=== PATIENT | female | born 1990 | race Caucasian/White ===

== ENCOUNTER 2022-10-28 15:00 | Emergency (ER) | payer BC, SELFPAY ==
[2022-10-28 15:13] VITALS: BP 104/54; PULSE 110; RESP 20; TEMP 37; O2SAT 99
--- NOTE | 2022-10-28 15:33 | ED.GENADUL_ITS ---
Discharge Plan Disposition Patient Disposition: Home Condition: Stable Discharge Details Clinical Impression: Abdominal pain, Primary Care Provider: Josué Frey ED Provider: Bebo Goodman Home Meds and New Rx's Prescriptions: No Action norgestimate-ethinyl estradiol [Ortho Tri-Cyclen (28)] 1 EACH tablet 1 tab-cap PO DAILY Discharge Instructions Instructions: (ED), Abdominal Pain (ED) HPI General Date/Time Provider Initiated Documentation: 10/28/22 15:19 . HPI Narrative: 32 year old female presents to the ED with c/o b/l lower abd pain pain since yesterday. Has been a relatively constant, crampy feeling. Initially felt she was constipated, but sx's persisted after BM. She says that she had miscarriage about 1 1/2 weeks ago, vaginal bleeding stopped about week ago. Her LMP was prior to (delivered 01/29, no period since then), and says had positive test a few weeks ago. She denies any urinary sx's, no n/v, no fever/chills. Currently feeling a little better. Pain mild, to moderate. No aggravating or alleviating factors, no other associated sx's. Related Data Home Medications Medication Instructions Recorded Confirmed norgestimate-ethinyl estradiol 1 tab-cap PO DAILY 01/18/15 10/28/22 0.18 mg/0.215mg/0.25mg-35 mcg(28)tablet (Ortho Tri-Cyclen (28)) Allergies Allergy/AdvReac Type Severity Reaction Status Date / Time No Known Allergies Allergy Unverified 10/28/22 15:17 General Stated Complaint: Abd Prob MEDINA: 3 Review of Systems Narrative: CONST: no fever or chills HEENT: no sore throat SKIN: no rashes PULM: no sob, no cough CARD: no cp, no palpitations ABD: +abd pain EXTR: no swelling NEURO: No focal weakness PFSH All Active Problems (Updated 10/28/22 @ 19:03 by Bebo Goodman MD) Abdominal pain (Acute) (Acute) Family History Mother No problems noted. Father Personal history of malignant neoplasm PROSTATE Brother No problems noted. Social History Smoking/Tobacco Use Status: Never Smoking risk assessment performed?: Yes Do you feel safe at home: Yes Do you feel safe in your relationship?: Yes Exam Narrative Exam Narrative: Const: well appearing, no acute distress HEENT: normocephalic, atraumatic; MMM Lungs: CTA, no wheezing or rales Heart: RRR Abd: soft, RLQ and suprapubic tenderness, no rebound or guarding Ext: well perfused Neuro: non-focal Skin: no rashes Course 32 yo female , recent miscarriage per pt in past 1 1/2 weeks with lower abd pain. No vaginal bleeding. Discussed posibility of RPOC, will check test, and may need pelvic US to r/o, also with some RLQ tenderness, may need CT a/p to eval appy, labs. She is declining any meds at this time. Reevaluation(s) Initial Evaluation: POC preg +, added quant, pelvic US to orders. Reevaluation: 1629 - Spoke to covering provider at [facility], was seen on September 27, had beta HCG 452, and then Sep 30 was down to 382, so presumed had complete miscarriage. Reevaluation #2: beta HCG 3501 today. Bedside transabd US could not visualize definitive IUP, but difficult to see transabdominal at this stage. Pt and dumbfounded about results, unclear how she could be , and given dates for her prior quant would expect. checking with lab to ensure no error. They will re-run. 184 - repeat hcg 3469. Additional Reevaluation(s): Pt with normal labs otherwise, unexpected positive HCG, verified on repeat. Exam with mild tenderness, but overall pretty benign and does not appear to be in a lot of pain. No vaginal bleeding. Discussed that pt needs US next to better eval, r/o possible ectopic for completeness.. She wants to call her resident care provider office tomorrow. Order for out-pt US given to use, and will need repeat labs in 2-3 days. Vital Signs Vital signs: Vital Signs Temperature 37.0 C 10/28/22 15:13 Pulse 110 H 10/28/22 15:13 Respiratory Rate 20 10/28/22 15:13 Blood Pressure 104/54 L 10/28/22 15:13 Pulse Oximetry 99 10/28/22 15:13 Temperature 37.0 C 10/28/22 15:13 Temperature Source Oral 10/28/22 15:13 Pulse 110 H 10/28/22 15:13 Respiratory Rate 20 10/28/22 15:13 Blood Pressure 104/54 L 10/28/22 15:13 Blood Pressure Position Sitting 10/28/22 15:13 Pulse Oximetry 99 10/28/22 15:13 Oxygen Delivery Method Room Air 10/28/22 15:13 Oxygen Flow Rate 0 10/28/22 15:13
[2022-10-28] MEDS: Normal Saline 1,000 ML 1000 ML IV (15:51)
[2022-10-28 16:04] LABS: Bilirubin Negative (Negative); Blood Large (Negative); Clarity Clear (Clear); Glucose Negative (Negative); Ketones Negative (Negative); Leukocyte Esterase Negative (Negative); Nitrite Negative (Negative); Specific Gravity >= 1.030 (1.005-1.025); Urobilinogen 0.2 mg/dL (Up to 0.2); pH 5.5 (5-8)
[2022-10-28 16:18] LABS: Bacteria Rare HPF (Negative); Crystals Negative HPF (Negative); Epithelial Cells Few HPF (Negative); WBC Negative HPF (0-5)
[2022-10-28 16:19] LABS: C & S Indicated? No; Casts Negative LPF (Negative); Mucus Trace (Negative)
[2022-10-28 16:33] LABS: HCG Quant, Pregnancy 3501 mIU/mL (1-3)
[2022-10-28 18:40] LABS: Abs Immature Grans 0.02 10^3/uL (0.0-0.06); Absolute Basophil Count 0.06 10^3/uL (0.0-0.2); Absolute Eosinophil Count 0.13 10^3/uL (0.0-0.7); Absolute Lymphocyte Count 1.39 10^3/uL (1.2-3.4); Absolute Monocyte Count 0.34 10^3/uL (0.1-0.8); Absolute Neutrophil Count 4.36 10^3/uL (1.2-6.7); Eosinophils % 2.1; HCT 39.7 % (36.0-46.0); HGB 13.6 g/dL (11.2-15.7); Immature Grans % 0.3; Lymphocytes % 22.1; MCH 30.1 pg (27.0-33.0); MCHC 34.3 % (32.0-36.0); MCV 88 fL (80-95); MPV 9.4 fL (8.0-11.0); Monocytes % 5.4; Neutrophils % 69.1; Platelet Count 275 10^3/uL (130-400); RBC 4.52 10^6/uL (3.93-5.22); RDW 12.8 % (11.7-14.6); RDW-SD 40.6 fL
[2022-10-28 18:52] LABS: ALT 36 U/L (14-59); AST 23 U/L (15-37); Albumin 3.6 g/dL (3.4-5.0); Alkaline Phosphatase 91 U/L (46-116); Anion Gap 9.6 mmol/L (3-11); BUN 13 mg/dL (7-18); Bilirubin, Total 0.5 mg/dL (0.2-1.0); CO2 26.4 mmol/L (21.0-32.0); CREATININE 0.7 mg/dL (0.55-1.02); Calcium 8.9 mg/dL (8.5-10.1); Chloride 103 mmol/L (98-107); Estimated GFR 116.31 (mL/min/1.73m2); Glucose 107 mg/dL (74-106); Lipase 49 U/L (16-77); Potassium 3.5 mmol/L (3.5-5.1); Sodium 139 mmol/L (136-145); Total Protein 7.7 g/dL (6.4-8.2)
--- OUTSIDE RECORDS SUMMARY | 2022-10-28 19:01 | XMS_ITS | Continuity of Care Document ---
Author Name Unknown Organization [facility] Ambulatory [facility] Address [address] [place] [address] Encounter [facility] NBR [id number] Date(s): 02/11/22 - 02/11/22 [facility]ulatory [facility] [address] [place] [address] us Encounter Diagnosis exam(Discharge Diagnosis) - 02/11/22 Cervical high risk human papillomavirus (HPV) DNA test positive(Discharge Diagnosis) - 02/11/22 Discharge Disposition: Home or Self Care Attending Physician: Kirk Mckeon Allergies, Adverse Reactions, Alerts No Known Medication Allergies Substance Reaction Severity Status Dust Unknown Active Assessment and Plan Future Appointments Functional Status 02/11/22 Other exposure to Infectious Disease Non e Immunizations Given and Recorded Vaccine Date Status Refusal Reason tetanus/diphth/pertuss (Tdap) adult/adol 1 10/11/21 Recorded tetanus/diphth/pertuss (Tdap) adult/adol 2 05/05/19 Recorded 1Result Comment: Unit: Unknown Data Entry Associate: Sanofi Pasteur 2Result Comment: Unit: Unknown Data Entry Associate: Sanofi Pasteur Medications multivitamin adult, oral tablet 1 tab, Oral, Daily, # 30 tab, 0 Refill(s) Start Date: 02/11/22 Status: Ordered norethindrone 0.35 mg oral tablet 0.35 mg = 1 tab, Oral, Daily, # 28 tab, 11 Refill(s), Pharmacy: [facility], 154.94, cm, 12/25/21 13:48:00 EDT, Height/Length Dosing, 75.75, kg, 12/25/21 13:48:00 EDT, Weight Dosing Start Date: 01/14/22 Status: Ordered Problem List Condition Confirmation Course Effective Dates Status H ealth Status Informant Cervical high risk human papillomavirus (HPV) DNA test positive Confirmed Active exam Confirmed Active Rh negative Confirmed Active Procedures Procedure Date Related Diagnosis Body Site Status Structure of wisdom tooth 2007 Completed Vital Signs Most recent to oldest [Reference Range]: 1 Blood Pressure [90-140/60-90 mmHg] 116/7 4mmHg (02/11/22 2:30 PM) Weight 64.0 kg (02/11/22 2:30 PM) Weight Measured (lbs) 141.096 lb (02/11/22 2:30 PM) Social History Social History Type Response Smoking Status Smoking tobacco use: Never tobacco user;Never entered on: 02/11/22 Sex summary Document * Event Display: Summary Document Authored Date: [id number] RENNY ALAS: 1990 Age: 31 Years RENNY ALAS : [birth year] Summary (Date of Report: 01/10/22) G 2 P 2 (2,0,0,2) Gestation: Davies LMP: 03/14/2021 (from pt. history) BEATRICE: 12/19/2021 BEATRICE/EGA Method: Last Menstrual Period EGA: Delivered Gestation info at delivery: Baby A : 40 weeks 6 days 12/11/21: U/S 05/29/2021: 12.6U/S 08/02/2021: 19.4 (Angela Hernandez) RENNY ALAS : [birth year] Antepartum Note Date: 12/13/21 11:04 (39 weeks) By: Kirk Mckeon Reviewed signs of labor and postdate management. RENNY ALAS : [birth year] Problems (Active Problems Only) (SNOMED CT: 703795461, Onset: 03/14/21) Comment: U/S 05/29/2021: 12.6 U/S 08/02/2021: 19.4 (Angela Hernandez on 12/11/21) Rh negative (OMED CT: [id number], Onset: --) RENNY ALAS DOB: [birth year] Risk Factors and Genetic Screening All Results Documented Since 03/14/2021 Risk Factors (Current ) Unique Risk Factors: Other: 1st child patent foramen ovale at [facility] [place] 15 days Ethnic Screening No ethnicities have been recorded. Genetic Disorders Screening No genetic disorders have been recorded. RENNY ALAS DOB: [birth year] Gestational Age (EGA) and BEATRICE * Note: EGA calculated as of 01/10/2022 BEATRICE: 12/19/2021 EGA*: 40 weeks 6 days Type: Authoritative Method Date: 03/14/2021 Method: Last Menstrual Period (03/14/2021) Confirmation: Confirmed Description: Date Definite Comments: -- Entered by: Angela Hernandez on 12/11/2021 Other BEATRICE Calculations for this : No additional BEATRICE calculations have been recorded for this RENNY ALAS DOB: [birth year] Measurements Pre- Weight: 61.69 kg 12/20/21 (40 weeks) Recent Weight Measured: 75.750 kg (+14) 12/25/21 (40 weeks) Height/Length Measured: 154.940 cm 12/25/21 (40 weeks) Body Mass Index Measured: 31.550 kg/m2 12/25/21 (40 weeks) RENNY ALAS : [birth year] Exam and Notes Date CLEOPATRA Cedillo PTL S/S Cervix BP Weight Urine Baby cm Dil Eff(%) Sta mmHg lbs kg Gluc Prot FHR Activity Fet Pres 12/25/21 40w6d -- -- 9.5 100% +1 122/71 *167... -- -- Baby A = 150 -- -- 12/20/21 40w1d 40 *Cram.. -- 60% -- 118/68 *167... Negative Trace Baby A = 144 *Present pe... Vertex 12/13/21 39w1d 39 None -- -- -- 122/74 *167... Negative Negative Baby A = 130 *Present pe... Vertex Next Visit: +1 weeks from 12/13/2021 * Labor Signs & Symptoms 12/20/2021 Cramps * Weight 12/25/2021 167.029(lbs) 75.750(kg) 12/20/2021 167.800(lbs) 76.1(kg) 12/13/2021 167.580(lbs) 76.0(kg) * Activity 12/20/2021 Present per patient 12/13/2021 Present per patient ALASRENNY Franco : [birth year] Physical Exams Physical Exam Mental Status Level of Consciousness: Alert (12/26/21) Orientation Assessment: Oriented x 4 (12/26/21) Affect/Behavior: Appropriate, Calm, Cooperative (12/25/21) HEENT Mouth: Mouth appears normal (12/26/21) Cardiovascular Cardiovascular Symptoms: None (12/26/21) Nail Bed Color: Normal for ethnicity (12/26/21) Capillary Refill: 2 seconds or less (12/26/21) Skin Temperature, Upper Extremities: Warm (12/26/21) Skin Temperature, Lower Extremities: Warm (12/26/21) Jugular Venous Distention: Unable to visualize (12/26/21) Heart Rhythm: Regular (12/26/21) Heart Sounds: S1, S2 (12/26/21) Respiratory Respiratory Symptoms: None (12/26/21) Respirations: Unlabored (12/26/21) Respiratory Pattern: Regular (12/26/21) All Lobes Breath Sounds: Clear (12/25/21) Gastrointestinal GI Symptoms: None (12/26/21) Abdomen Description: Rounded (12/26/21) Abdomen Palpation: Soft (12/26/21) Passing Flatus: Yes (12/26/21) Extremities Edema Edema: Lower Extremities (12/25/21) Integumentary Skin Color General: Usual for ethnicity (12/26/21) Skin Color: Normal for ethnicity (12/25/21) Skin Description: Petrey, Dry (12/25/21) Skin Temperature: Warm (12/26/21) Skin Turgor: Elastic (12/26/21) Skin Moisture General: Dry (12/26/21) Skin Integrity: Intact, no abnormalities (12/25/21) Mucous Membrane Color: Petrey (12/26/21) Mucous Membrane Description: Moist, Intact (12/26/21) RENNY ALAS: [birth year] Blood Types and Anti-D Immune Globulin Blood Type and Screen Mother ABO/Rh: -- Mother Antibody Screen: -- Father of Baby ABO/Rh: -- Father of Baby Antibody Screen: -- Anti-D Immune Globulin Rho(D) Initial Status: -- Rho(D) 28 Week Status: -- Rho(D) Dates Given: -- RENNY ALAS: [birth year] Tests and Lab Results Results ending with 'TR' have been keyed in by the practice or interpreted manually. Result Date: Estimated weeks post onset will display next to actual result date. Test Result Date Ref Range Protein Urine Dipstick Negative 12/13/21 (39 weeks) Glucose Urine Dipstick Negative 12/13/21 (39 weeks) Protein Urine Dipstick Trace 12/20/21 (40 weeks) Glucose Urine Dipstick Negative 12/20/21 (40 weeks) In ICU? (N) No 12/25/21 (40 weeks) Group care resident? (N) No 12/25/21 (40 weeks) Hospitalized due to COVID-19? (N) No 12/25/21 (40 weeks) Symptomatic as defined by CDC? (N) No 12/25/21 (40 weeks) status? (N) 12/25/21 (40 weeks) SARS-CoV-2 (COVID-19) PCR (GeneXpert) Negative 12/25/21 (40 weeks) Negative 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 (N) No 12/25/21 (40 weeks) RENNY ALSA: [birth year] Actions No Actions have been documented. RENNY ALAS: [birth year] Situational Awareness No comments have been documented. RENNY ALAS : [birth year] Allergies (Active and Proposed Allergies Only) No Known Medication Allergies (Severity: Unknown severity, Onset: Unknown) Dust (Severity: Unknown, Onset: Unknown) RENNY ALAS : [birth year] Medications Prescriptions and Home Medications Currently Active or Taking acetaminophen 325 mg oral tablet (Historically recorded) SI mg = 2 tab, Oral, every 4 hr, PRN: pain, mild, 0 Refill(s) Ordered: 12/27/21 Provider: Kirk Mckeon FeroSul 325 mg (65 mg elemental iron) oral tablet (Historically recorded) SI Unknown, 0 Refill(s) Ordered: 12/13/21 Provider: -- ibuprofen 600 mg oral tablet (Historically recorded) SI mg = 1 tab, Oral, every 4 hr, PRN: pain, mild, 0 Refill(s) Ordered: 12/27/21 Provider: Kirk Mckeon pantoprazole 20 mg oral delayed release tablet (Historically recorded) SI mg = 1 tab, Oral, Daily, 0 Refill(s) Ordered: 12/13/21 Provider: -- Multivitamins (Historically recorded) SI tablet, Oral, Daily, 0 Refill(s) Ordered: 12/25/21 Provider: -- Inactive or Suspended (Prescriptions and documented medications since 12/12/20) omeprazole 20 mg oral delayed release capsule (Historically recorded) SI cap, 0 Refill(s) Status: Discontinued Ordered: 12/13/21 Provider: -- Multivitamins (Historically recorded) SI Unknown, 0 Refill(s) Status: Voided Ordered: 12/13/21 Provider: -- Medication Administrations In-Office/Hospital (All in-office/hospital administrated medications ordered since 12/12/20) multivitamin, (Multiple Vitamins [LTTL]) 1 tab, Oral, Daily Status: Canceled Ordered: 12/25/21 Provider: Kirk Mckeon docusate-senna 50 mg-8.6 mg (docusate-senna) 1 tab, N/A, Once Status: Completed Ordered: 12/27/21 Provider: AdanUser, Generated docusate-senna 50 mg-8.6 mg (docusate-senna) 1 tab, N/A, Once Status: Completed Ordered: 12/26/21 Provider: Zitar, Generated lidocaine 1% (lidocaine) 20 mL, N/A, Once Status: Completed Ordered: 12/25/21 Provider: AdanUser, Generated mineral oil 100% (mineral oil) 30 mL, N/A, Once Status: Completed Ordered: 12/25/21 Provider: AdanUser, Generated miSOPROStol 1,000 mcg = 5 tab, N/A, Once Status: Completed Ordered: 12/25/21 Provider: AdanUser, Generated nalbuphine 10 mg = 1 mL, N/A, Once Status: Completed Ordered: 12/25/21 Provider: AdanUser, Generated Nubain (Nalbuphine 10 mg/mL Inj Hilary [LTTL]) 5 mg = 0.5 mL, Subcutaneous, Once, PRN: pain Status: Completed Ordered: 12/25/21 Provider: Kirk Mckeon oxytocin 10 units = 1 mL, N/A, Once Status: Completed Ordered: 12/25/21 Provider: Chantell Cueto acetaminophen (Acetaminophen 325 mg Tab [LTTL]) 650 mg = 2 tab, Oral, every 4 hr, PRN: pain, mild Status: Discontinued Ordered: 12/25/21 Provider: Kirk Mckeon benzocaine-menthol 20%-0.5% topical spray (Benzocaine-Menthol Topical [place] [LTTL]) 1 shy, Topical, As Directed, PRN: other (see comment) Status: Discontinued Ordered: 12/25/21 Provider: Kirk Mckeon calcium (as carbonate) 500 mg oral tablet (Calcium Carbonate 500 mg Chew Tab (Tums) [LTTL]) 1,000 mg = 2 tab, Oral, every 2 hr, PRN: dyspepsia Status: Discontinued Ordered: 12/25/21 Provider: Kirk Mckeon docusate-senna 50 mg-8.6 mg oral tablet (Senna-Docusate 8.6 mg-50 mg Tab [LTTL]) 1 tab, Oral, BID, PRN: constipation Status: Discontinued Ordered: 12/25/21 Provider: Kirk Mckeon ibuprofen (Ibuprofen 600 mg Tab [LTTL]) 600 mg = 1 tab, Oral, every 4 hr, PRN: pain, mild Status: Discontinued Ordered: 12/25/21 Provider: Kirk Mckeon miSOPROStol (miSOPROStol 200 mcg Tab [LTTL]) 1,000 mcg = 5 tab, [place], Once, PRN: bleeding Status: Discontinued Ordered: 12/25/21 Provider: Kirk Mckeon miSOPROStol (miSOPROStol 25 mcg Tab [LTTL]) 25 mcg = 1 tab, VAG, every 3 hr, PRN: other (see comment) Status: Discontinued Ordered: 12/25/21 Provider: Kirk Mckeon naloxone (Naloxone 0.4 mg/mL Inj 1ml Vial [LTTL]) 0.1 mg = 0.25 mL, IV Push, every 5 min, PRN: other (see comment) Status: Discontinued Ordered: 12/25/21 Provider: Kirk Mckeon oxytocin (oxytocin 10 units/mL Inj 1ml Vial [LTTL]) 10 units = 1 mL, IM, Once, PRN: other (see comment) Status: Discontinued Ordered: 12/25/21 Provider: Kirk Mckeon simethicone (Simethicone 80 mg Chew Tab [LTTL]) 80 mg = 1 tab, Oral, As Directed, PRN: gas Status: Discontinued Ordered: 12/25/21 Provider: Kirk Mckeon wituriel sigrid 50% rectal pad (Witch Sigrid 50% Top Pad [LTTL]) 1 shy, Topical, As Directed, PRN: other (see comment) Status: Discontinued Ordered: 12/25/21 Provider: Kirk Mckeon RENNY ALAS : [birth year] Immunizations tetanus/diphth/pertuss (Tdap) adult/adol 10/11/21 (27 weeks) RENNY AALS : [birth year] Menstrual History Last Recorded Menstrual Period: 03/14/2021 Last Menstrual Period Description: -- Menarche Onset: -- Menarche Frequency: -- Menarche Length: -- Date of Menses Prior to LMP: -- On Hormonal Contracept within 2 months of LMP: -- Date of Home Test: -- Comments: -- RENYN ALAS : [birth year] History (2,0,0,2) # 1 Baby 1 Outcome Date: 07/11/2019 Outcome or Result: Vaginal Gest Age: 40 weeks 5 days Outcome: Live Sex: Female Wt: 3062 g Child's Name: [place] Name of Father/Guardian of [place]: [place] Hospital: [facility] Comment: Second degree perineal laceration # 2 Baby 1 Outcome Date: 12/25/2021 Outcome or Result: Vaginal Gest Age: 41 weeks Outcome: Live Sex: -- RENNY ALAS : [birth year] Medical History Past Medical History Normal (SNOMED CT: ) Onset Age: -- Resolved: -- Family History Father (Name not documented, at age 67 years from ALS) Cancer Mother (Name not documented, Alive) Hypertension Sister (Name not documented, Alive) Alive and well Daughter (Name not documented, Alive) Alive and well Procedure or Surgical History Delivery of Products of Conception, External Approach Age: 31 Years Date: 12/25/2021 Monitoring of Products of Conception, Cardiac Rate, External Approach Age: 31 Years Date: 12/25/2021 Structure of wisdom tooth Age: 15 Years Date: 2006 RENNY ALAS : [birth year] Social & Psychosocial History Social History 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 Home/Environment Lives with Children, Significant other. Living situation: Home/Independent. Tobacco Never tobacco user Tobacco Use:. Electronic Cigarette/Vaping Electronic Cigarette Use: Never. 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 Relationship to Pt: Father of baby Oral Intake OB: -- Labor Preferences: -- Non-Medicinal Pain Relief: -- Anesthesia/Pain Medication During Labor: -- Delivery Plan: -- Infant Feeding: Exclusive breast milk Circumcision: -- Baby For Adoption: -- Patient Requests: -- Father of the Baby's Name: Jolie Armsrtong Strategic Client Executive Selected: -- Surrogate : -- Support Person's Name: -- RENNY ALAS: [birth year] Education Educational Materials/Leaflets Provided Title/Topic Date Provided Christiana Eduardo [facility] - Vaginal or Delivery - Post Discharge Instructions 12/27/21 Patient Education Pain Management: Verbalizes understanding (12/25/21 - Lou Busby) Depression: Verbalizes understanding (12/25/21 - Lou Busby) RENNY ALAS: [birth year] Registration and Information Race: White Ethnicity: Not , , or Slovak Origin Marital Status: Language(s): Sami Tenriism Preference(s): None/No Preference Occupation/Education: Address, Phone, and Health Plans Home Address: [facility] [place] [address] (Home), , -- Health Plans: 1 - [place] Member/Group: [id number] Deductible: $ -- Type: Medicaid Address: [address] [id number] - [place] Member/Group: [id number] Deductible: $ -- Type: Medicaid Address: [address] [id number] - SELF PAY Member/Group: -- Deductible: $ -- Type: Self Pay Address: [facility] [address], [place] [address] General Information OB Provider(s) Information: Kehinde Humphries MD, [facility] See below for detailed information for all visits and information. Delivery Center/Hospital Information: -- Provider Information: -- Referring Provider Information: [facility] Primary Provider Information: -- /Partner Information: JOLIE ARMSTRONG Support Person Information: -- (Father of baby) Planned/Unplanned : -- Date Consent Signed for Tubal Ligation: -- Date Record Sent to Hospital: -- RENNY ALAS : [birth year] Visits and Encounters (Known encounters since 03/14/2021. May include lab encounters.) Date Location Provider Type Medical Service 01/14/2022 [facility] Kirk Mckeon [facility] 12/26/2021 [facility] 12/25/2021 [facility] Inpatient Inpatient 12/25/2021 A Kirk Mckeon Inpatient Inpatient 12/20/2021 T2 Kehinde Humphries MD, [facility]OG Clinic Clinic 12/13/2021 1 Kirk Mckeon Clinic Clinic 11/29/2021 [facility]-Lab Kirk Mckeon History Laboratory 09/24/2021 [facility] Ophelia Sainz APRN History Laboratory 08/02/2021 [facility]-DiagnostIMG [facility] History Radiology 06/05/2021 [facility]-Lab [id number] -KEHINDE HUMPHRIES History Laboratory RENNY ALAS : [birth year] Visit / Encounter Location Information The following information represents known location and contact information for locations visitedduring [facility] Amb[facility] Business Address: [address] [place] [address] Phone:[phone] [facility] Address: No addresses found on file for location Phone: No phone numbers found on file for location RENNY ALAS : [birth year] Visit Diagnosis (Note: All diagnoses documented since 03/14/2021) 12/25/21 - Encounter for supervision of other normal , third trimester (ICD-10-CM: Z34.83,Date: ) 12/25/21 - Contact with and (suspected) exposure to COVID-19 (ICD-10-CM: Z20.822, Date: ) 12/25/21 - Type O blood, Rh negative (ICD-10-CM: Z67.41, Date: ) 12/25/21 - 40 weeks gestation of (ICD-10-CM: Z3A.40, Date: ) 12/25/21 - Other specified related conditions, third trimester (ICD-10-CM: O26.893, Date:) 12/25/21 - Single live (ICD-10-CM: Z37.0, Date: ) 12/25/21 - Post-term (ICD-10-CM: O48.0, Date: ) 12/25/21 - state, incidental (ICD-10-CM: Z33.1, Date: 12/25/21) 12/25/21 - Unspecified blood type, Rh negative (ICD-10-CM: Z67.91, Date: 12/25/21) 12/25/21 - Encounter for full-term uncomplicated delivery (ICD-10-CM: O80, Date: 12/25/21) 12/20/21 - state, incidental (ICD-10-CM: Z33.1, Date: 12/20/21) 12/13/21 - Encounter for supervision of normal , unspecified, third trimester (ICD-10-CM: Z34.93, Date: 12/13/21) 12/13/21 - Unspecified blood type, Rh negative (ICD-10-CM: Z67.91, Date: 12/13/21) RENNY ALAS : [birth year] Delivery Summary Baby A Membrane Status Information ROM Date/Time: 12/25/21 14:14:00 Amniotic Fluid Color/Description: Clear Premature Rupture of Membranes: No Prolonged Rupture of Membranes: No Labor Information Labor Onset Methods: Spontaneous Precipitous Labor: No Prolonged Labor: No Monitoring FHR Monitoring Method: Doppler ultrasound Delivery Information Delivery Type: Vaginal Delivery of Head Date/Time: 12/25/21 14:45:00 Date/Time of : 12/25/21 14:46:00 Placenta Delivery Date/Time: 12/25/21 14:52:00 Placenta Delivery Method: Spontaneous Placenta to Pathology: No Cord Blood Sent to Lab: Yes Maternal Delivery Complications: None Delivery Physician: Kirk Mckeon Attending Physician: Kirk Mckeon Information Complications: None Umbilical Cord Description: 3 vessel cord Data Gender: Female ID Band Number: [id number] Outcome: Live Security Tag Number: [id number] Weight: 3.62 kg Score 1 Minute: 8 Score 5 Minute: 9 Strategic Client Executive: Jesenia Ha Note: Items documented with '--' had no clinical data which qualified at time of report creation END OF REPORT Physician Outpatient Note * Kirk Mckeon: PERFORM Event Display: Office Clinic Note Physician Authored Date: [id number] RENNY ALAS :1990 Age:31 years Sex:Female Visit Date:02/11/2022 Chief Complaint Six week post - 12/25/2021 Additional Information Exclusively breast feeding History of Present Illness 31yo 002, The patient is here today for her 6 weeks?? appointment. She had a Spontaneous Vaginal Delivery on 12/25/2021 at 40 6/7 weeks. There were no lacerations at the time of delivery. ?? Since her delivery, the patient??has been doing well.??The baby is sleeping well. She is breast-feeding and supplementing with formula on occasion.?Her supply is adequate. Her mood motions have??been good. ??Occasionally they have a stressful day. ??She has good support at home. ??There has been some intermittent??spotting. ??She plans on using the Minipill for control.?? Her last Papsmear on 06/05/2021 was Cytology Negative. However, she??is Positive for High Risk HPV DNA. Physical Exam Vitals & Measurements BP:??116/74?? WT:??64.0??kg?? GENERAL: Cooperative, alert, no acute distress. HEENT: Head is normocephalic, atraumatic. PERRLA.?? HEART: Regular rate and rhythm without murmur. LUNGS: Clear to auscultation bilaterally, no wheeze, rales or rhonchi. ABDOMEN: Soft, nontender, nondistended. ??No palpable masses. EXTREMITIES: No edema or tenderness.Vulva: No abnormal swelling ?? Vulva: normal external female genitalia Vagina: normal mucosa, no abnormal discharge or blood Uterus: normal size, shape, non tender, mobile, no prolapse Adnexa: no masses or tenderness Perineum: Intact Assessment/Plan 1.?? exam??Z39.2 2.??Cervical high risk human papillomavirus (HPV) DNA test positive??R87.810 At today's appointment, we reviewed??her previous Pap smear. ??Recommended that she have follow-up Pap smear that is due in May 2022. The patient is doing very well overall. She is physically fine with a normal cardiac exam and tapering/finished lochial flow. She and the baby are bonding well and, as expected, are having mostly good days. I reviewed with her when she'll need her next pap and explained she is to call if she has any problems prior to that time. Problem List/Past Medical History Ongoing Cervical high risk human papillomavirus (HPV) DNA test positive exam Rh negative Historical Encounter for supervision of normal in third trimester Procedure/Surgical History ???Structure of wisdom tooth (2006) Medications multivitamin adult, oral tablet, 1 tab, Oral, Daily norethindrone 0.35 mg oral tablet, 0.35 mg= 1 tab, Oral, Daily, 11 refills Allergies Dust No Known Medication Allergies Social History Electronic Cigarette/Vaping Electronic Cigarette Use: Never. 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 Home/Environment Lives with Children, Significant other. Living situation: Home/Independent. Tobacco Never tobacco user Tobacco Use:. Never Smokeless Tobacco use:. Family History Alive and well: Sister, Daughter and Daughter. Cancer: Father. Hypertension: Mother. Family Member(s): ?? FATHER, at age: 67 Years. Cause of : ALS Immunizations Vaccine Date Status tetanus/diphth/pertuss (Tdap) adult/adol 10/11/2021 Recorded Comments : Unit: Unknown Data Entry Associate: Sanofi Pasteur tetanus/diphth/pertuss (Tdap) adult/adol 05/05/2019 Recorded Comments : Unit: Unknown Data Entry Associate: Sanofi Pasteur Electronically Signed on 02/11/22 03:16 PM Kirk Mckeon
--- OUTSIDE RECORDS SUMMARY | 2022-10-28 19:01 | XMS_ITS | Continuity of Care Document ---
Author Name Unknown Organization [facility] Address [address] [place] [address] Encounter [facility] FIN NBR [id number] Date(s): 12/20/21 - 12/20/21 [facility] [address] [place] [address]- [place] Encounter Diagnosis (Discharge Diagnosis) - 12/20/21 Discharge Disposition: Home or Self Care Attending Physician: Dr. Sebastian Barakat MD, FACOG Allergies, Adverse Reactions, Alerts No Known Medication Allergies Substance Reaction Severity Status Dust Unknown Active Assessment and Plan Future Appointments Appointment Date:12/26/2021 10:15:00 AM Scheduled Provider: Location:[facility] Appointment Type:OB Follow Up Functional Status 12/20/21 Recent Travel History No recent travel Other exposure to Infectious Disease Non e Immunizations Given and Recorded Vaccine Date Status Refusal Reason tetanus/diphth/pertuss (Tdap) adult/adol 1 10/11/21 Recorded tetanus/diphth/pertuss (Tdap) adult/adol 2 05/05/19 Recorded 1Result Comment: Unit: Unknown 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[employer] 2Result Comment: Unit: Unknown 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[employer] Medications FeroSul 325 mg (65 mg elemental iron) oral tablet 1 Unknown, 0 Refill(s) Start Date: 12/13/21 Status: Ordered omeprazole 20 mg oral delayed release capsule 30 cap, 0 Refill(s) Start Date: 12/13/21 Status: Ordered pantoprazole 20 mg oral delayed release tablet 90 EA, TAKE ONE TABLET BY MOUTH ONCE DAILY, 0 Refill(s) Start Date: 12/13/21 Status: Ordered Multivitamins 1 Unknown, 0 Refill(s) Start Date: 12/13/21 Status: Ordered Problem List Condition Confirmation Course Effective Dates Status Health St [facility] Informant Encounter for supervision of normal in third trimester Confirmed Active 1 Confirmed 03/14/21 Active Rh negative Confirmed Active 1U/S 05/29/2021: 12.6 U/S 08/02/2021: 19.4 Procedures Procedure Date Related Diagnosis Body Site Status Structure of wisdom tooth 2006 Completed Results Most recent to oldest [Reference Range]: 1 Protein Urine Dipstick Trace (12/20/21 10:25 AM) Glucose Urine Dipstick Negative (12/20/21 10:25 AM) Vital Signs Most recent to oldest [Reference Range]: 1 2 Blood Pressure [90-140/60-90 mmHg] 118/6 8mmHg (12/20/21 10:25 AM) Weight 76.1 kg (12/20/21 10:25 AM) Weight Measured (lbs) 167.772 lb (12/20/21 10:25 AM) [place] Body Weight Calculated 47.8 kg (12/20/21 10:25 AM) Pre- Weight 61.69 kg (12/20/21 10:25 AM) Cumulative Weight Gain 14 kg (12/20/21 10:25 AM) Height 154.94 cm (12/20/21 10:25 AM) Height/Length Measured (inches) 61 inch (12/20/21 10:25 AM) BSA Measured 1.81 m2 (12/20/21 10:25 AM) Body Mass Index 31.7 kg/m2 (12/20/21 10:25 AM) 31.7 kg/m2 (12/20/21 10:25 AM) Social History Social History Type Response Tobacco Never tobacco user T obacco Use:. Sex
--- OUTSIDE RECORDS SUMMARY | 2022-10-28 19:01 | XMS_ITS | Continuity of Care Document ---
Author Name Unknown Organization [facility] Address [address] [place] [id number] Encounter [facility] FIN NBR [id number] Date(s): 12/25/21 - 12/27/[address] [address] [place] Encounter Diagnosis (Discharge Diagnosis) - 12/25/21 Spontaneous vaginal delivery(Discharge Diagnosis) - 12/25/21 Rh negative(Discharge Diagnosis) - 12/25/21 Post-term (Final) - Single live (Final) - Other specified related conditions, third trimester(Final) - 40 weeks gestation of (Final) - Type O blood, Rh negative(Final) - Contact with and (suspected) exposure to COVID-19(Final) - Discharge Disposition: Home or Self Care Attending Physician: Kirk Mckeon Attending Physician: Pacheco Bell Admitting Physician: Kirk Mckeon Referring Physician: Pacheco Bell Allergies, Adverse Reactions, Alerts No Known Medication Allergies Substance Reaction Severity Status Dust Unknown Active Functional Status 12/25/21 Family Member Travel History No recent t ravel Recent Travel History No recent travel Other exposure to Infectious Disease Non e Immunizations Given and Recorded Vaccine Date Status Refusal Reason tetanus/diphth/pertuss (Tdap) adult/adol 1 10/11/21 Recorded tetanus/diphth/pertuss (Tdap) adult/adol 2 05/05/19 Recorded 1Result Comment: Unit: Unknown 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[employer] 2Result Comment: Unit: Unknown 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 Medications acetaminophen 325 mg oral tablet 650 mg = 2 tab, Oral, every 4 hr, PRN pain, mild, 0 Refill(s) Start Date: 12/27/21 Status: Ordered FeroSul 325 mg (65 mg elemental iron) oral tablet 1 Unknown, 0 Refill(s) Start Date: 12/13/21 Status: Ordered ibuprofen 600 mg oral tablet 600 mg = 1 tab, Oral, every 4 hr, PRN pain, mild, 0 Refill(s) Start Date: 12/27/21 Status: Ordered pantoprazole 20 mg oral delayed release tablet 20 mg = 1 tab, Oral, Daily, 0 Refill(s) Start Date: 12/13/21 Status: Ordered Multivitamins 1 tablet, Oral, Daily, 0 Refill(s) Start Date: 12/25/21 Status: Ordered Problem List Condition Confirmation Course Effective Dates Status Health St atus Informant 1 Confirmed 03/14/21 Active Rh negative Confirmed Active 1U/S 05/29/2021: 12.6 U/S 08/02/2021: 19.4 Procedures Procedure Date Related Diagnosis Body Site Status Structure of wisdom tooth 2006 Completed Results Laboratory List Name Date SARS-CoV-2 (COVID-19) PCR ([facility]) Most recent to oldest [Reference Range]: 1 SARS-CoV-2 (COVID-19) PCR ([facility]) [N egative] Negative (12/25/21 10:23 AM) 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 No *NA* (12/25/21 10:23 AM) Symptomatic as defined by CDC? No *NA* (12/25/21 10:23 AM) Hospitalized due to COVID-19? No *NA* (12/25/21 10:23 AM) In ICU? No *NA* (12/25/21 10:23 AM) Group care resident? No *NA* (12/25/21 10:23 AM) status? *NA* (12/25/21 10:23 AM) Vital Signs Most recent to oldest [Reference Range]: 1 2 3 Temperature Temporal Artery [36-38 Deg C] 37 Deg C (12/27/21 9:17 AM) 36.9 Deg C (12/26/21 7:35 PM) 37 Deg C (12/26/21 8:39 AM) Temperature Temporal Artery (DegF) [97.3-100 Deg F] 98.96 Deg F (12/25/21 6:21 PM) 98.06 Deg F (12/25/21 7:17 AM) Apical Heart Rate [60-100 bpm] 111 bpm *HI* (12/25/21 5:09 AM) Peripheral Pulse Rate [60-100 bpm] 88 bpm (12/27/21 9:17 AM) 92 bpm (12/26/21 7:35 PM) 99 bpm (12/26/21 8:39 AM) Heart Rate Monitored [60-100 bpm] 121 bpm 1 *HI* (12/25/21 6:21 PM) 87 bpm (12/25/21 4:25 PM) 96 bpm (12/25/21 4:10 PM) Respiratory Rate [12-24 br/min] 18 br/min (12/27/21 9:17 AM) 16 br/min (12/26/21 7:35 PM) 18 br/min (12/26/21 8:39 AM) Blood Pressure [90-140/60-90 mmHg] 117/57mmHg (12/27/21 9:17 AM) 117/66mmHg (12/26/21 7:35 PM) 116/60mmHg (12/26/21 8:39 AM) Mean Arterial Pressure, Cuff [65-140 mmHg] 83 mmHg (12/26/21 7:35 PM) 79 mmHg (12/25/21 6:21 PM) 79 mmHg (12/25/21 4:25 PM) Blood Pressure Location Right arm (12/25/21 7:30 PM) Right arm (12/25/21 6:21 PM) Blood Pressure Method Automatic (12/25/21 6:21 PM) Weight 75.750 kg (12/25/21 1:47 PM) 75.750 kg (12/25/21 12:45 PM) 75.750 kg (12/25/21 7:00 AM) Weight Dosing 75.750 kg (12/25/21 1:47 PM) 75.750 kg (12/25/21 12:45 PM) 75.750 kg (12/25/21 7:00 AM) Height 154.940 cm (12/25/21 1:47 PM) 154.940 cm (12/25/21 12:45 PM) 154.940 cm (12/25/21 7:00 AM) Height/Length Dosing 154.940 cm (12/25/21 1:47 PM) 154.940 cm (12/25/21 12:45 PM) 154.940 cm (12/25/21 7:00 AM) Body Mass Index 31.550 kg/m2 (12/25/21 1:47 PM) 31.550 kg/m2 (12/25/21 12:45 PM) 31.550 kg/m2 (12/25/21 7:00 AM) 1Result Comment: Patient reported to be very anxious about getting up. Social History Social History Type Response Tobacco Never tobacco user T obacco Use:. Sex Hospital Discharge Instructions Patient Education 12/27/2021 10:17:55 [facility] [place] ([place]) - Vaginal or Delivery - Post Discharge Instructions(CUSTOM) [facility] POST DISCHARGE INSTRUCTIONS Going home after a Vaginal or delivery General: You have just had a baby. It is normal to feel tired and worn out over the next several weeks. Sleep is difficult to get when you have a . We recommend sleeping when your baby sleeps if possible or asking someone to watch your so you can nap. Vaginal bleeding is normal as your uterus works on returning to its normal size and heals the placental attachment site. While nursing your baby, your uterus may feel crampy and your bleeding may increase. You may experience some clots that may be dime size, quarter size, and fifty-cent size. This is normal. If you continue to pass larger clots, and the flow is increasing over 4 hours, we recommend that you call the office. If you are , your milk will come in three or four days after you have given . It is normal for your nipples to feel sore for the first couple of weeks, but it is not normal for themto bleed, crack, or feel so raw that you feel like stopping . We have support on the OB unit, and Ophelia is also a oracle so[employer] consultant in the office. These resources are very willing to help and provide support in any way they can. During your we talked about what your control plans would be after your delivery. Most of the time we can make a plan at your six week post checkup and start the plan of your choice at that time. If we know ahead of time what your plan is, we can schedule you appropriately. If you plan on an intrauterine device or a Nexplanon let our front desk officer know when you schedule your appointment so we can get it cleared through your insurance prior to your appointment. It is normal to experience blues. Your hormone levels change dramatically after you deliver and this can cause you to feel tired, teary eyed, sad, and overwhelmed at times. The post partumblues typically improve after 2-3 weeks. depression can settle in after that and can be very worrisome. If you feel that you cannot stop crying, do not want to see your baby, are struggling to leave your house and/or find that your mind is racing, and you can not settle down, please [facility], and we can see you to discuss depression. Your blood volume doubles during . After delivery your body works on removing all of this extra fluid. You may have noticed that your legs and ankles felt pretty swollen prior to delivery. It is normal to see this swelling get worse after delivery. It gets worse if you are not drinking enough water and/or if you are eating foods with too much sodium. Push the water and watch your salts to help the swelling resolve as quickly as possible. Putting your feet up and wearing 2 pairs of socks or compression stockings can help as well. Most women who wish to return to work typically do so between 6 and 12 weeks. If you feel you have recovered to the point that you are ready to return to work, please call the office and let one of the secretaries know. It is usually best to discuss your readiness to return to work with your employer and pick a date for your return you both agree upon. Let us know that date and a letter will be provided that can be faxed to your employer clearing you to return to work without restriction on your chosen date. Vaginal Deliveries: Some discomfort is expected after a vaginal delivery. Most times this discomfort can be adequately managed with rest, heat, ibuprofen and Tylenol. Occasionally a narcotic may be needed for breakthrough pain. If you begin to have pain that is not controlled with the medications you were sent home with or if you develop fever and chills, please give the office a call. If you had a vaginal tear that required suturing, these sutures will dissolve over the next three weeks. During this process you may notice some yellowish drainage that may have a foul odor. This is the suture material breaking down, and it is a normal process. Keep the tissue clean with your pericare bottle or by taking a bath. Tucks pads can also be helpful. If you had a vaginal tear that required suturing please avoid sexual intercourse until your six week post visit. If you had no tearing we recommend that you wait to have intercourse until all of your bleeding has stopped. Keep in mind that you can get if you are not on anything for contraception. Deliveries: The dressing that was used following your surgery may have been removed in the hospital. Others aresent home with a dressing that is removed 1 week following your surgery. It should come off sooner if it gets wet underneath. This dressing is removed by slowly working around the outside of the dressing and working it away from the skin. Once the adhesive is the dressing will fall off. The sutures in the skin will dissolve on their own 2 to 3 weeks after your surgery. There are sutures that are deeper inside that will take 3 months to dissolve. Remember that eating a diet rich in protein will help your incision heal. When showering let the water run over your incision and pat drywith a towel. You do not need to redress the wound or vigorously scrub or clean the wound. If it rubs against your pants and feels sore, it is fine to place a gauze pad or paper towel between your incision and your clothing for cushioning. Please avoid sexual intercourse until your six week post visit. You should also do no heavy lifting for six weeks. Any lifting that takes the strength of both of your arms/hands is contraindicated. If you need both hands because whatever you are lifting is cumbersome that is fine. For example, a laundry basket with a few bath towels in it. Also it is good for you to climb stairs and to go for small walks. Medication: [ ] Continue all regularly prescribed medications unless your provider told you to stop a particular medication after your delivery. [ ] Continue taking your vitamins until your six week post visit. If you are it is typically best to continue the vitamins until you are done breast feeding. [ ] Ibuprofen is the best medication for your baseline pain control. Taking 600 mg by mouth every four hours will help with most of your post pain. Taking it with food is best so it does not upset your stomach. Taking it consistently will provide you the greatest relief. [ ] Tylenol combined with a narcotic: You may have been sent home with a narcotic for pain control.Taking 1 or 2 tablets every 4 to 6 hours as needed can be helpful for pain you have that is not covered by the ibuprofen. We recommend trying one tablet if your pain is a five or less on the pain scale. Two tablets if over a five. If you try 1 tablet and 40 minutes later would rate your pain as greater than a five, you may take a second tablet. There is typically 325 mg of Tylenol in each tablet.Be careful not to consume more than 3000 mg of Tylenol daily. Most people will find that they need narcotic containing medications sparingly and within a few days, not at all. If you had a delivery you may need this medication for a few extra days. These medications are constipating, can leave you slightly sick to your stomach and do not help with inflammation. Increase fluids and fiber.It is typically best to start an over the counter stool softener such as Colace or Senokot S to prevent constipation. Taper the narcotic containing medication first and then the ibuprofen. Our officepolicy is that post op patients can use narcotics in addition to ibuprofen for up to 5 days. After that, post op pain should be treated with ibuprofen alone and no further prescriptions for narcoticswill be provided. The following medications would be recommended for you to use when you arrive home. If necessary, you will have to have the prescriptions filled at your pharmacy. [ ] Ibuprofen 600 mg by mouth every 4 hours for baseline pain control [ ] Percocet 5/325 mg by mouth, 1 or 2 tablets every 4 to 6 hours as needed for pain [ ] Tylenol #3 by mouth, 1 or 2 tablets ever 4 to 6 hours as needed for pain [ ] Continue taking your vitamins at least until your six week post visit [ ] Iron sulfate 325 mg [ ] once daily [ ] twice daily - take on an empty stomach with a glass of OJ or similar [ ] Colace or Senokot S once or twice daily to avoid constipation [ ] NorQD for control taken daily at the same time starting in 2 weeks [ ] Postoperative Appointment: Your post appointment is on @ . If this time does not work for you, please call the office at [phone] to reschedule. If you need to contact [facility], the number is [phone]. Follow Up Care 12/25/2021 03:23:52 With:Kirk Mckeon Address: [address] [place] [phone] When:2 to 4 weeks
--- OUTSIDE RECORDS SUMMARY | 2022-10-28 19:01 | XMS_ITS | Continuity of Care Document ---
Author Name Unknown Organization [facility] Address [address] [place] [address] Encounter [facility] FIN NBR [id number] Date(s): 01/14/22 - 01/14/22 [facility] [address], [place] [address] Encounter Diagnosis exam(Discharge Diagnosis) - 01/14/22 Discharge Disposition: Home or Self Care Attending Physician: Kirk Mckeon Allergies, Adverse Reactions, Alerts No Known Medication Allergies Substance Reaction Severity Status Dust Unknown Active Functional Status 01/14/22 Other exposure to Infectious Disease Non e Immunizations Given and Recorded Vaccine Date Status Refusal Reason tetanus/diphth/pertuss (Tdap) adult/adol 1 10/11/21 Recorded tetanus/diphth/pertuss (Tdap) adult/adol 2 05/05/19 Recorded 1Result Comment: Unit: Unknown Ems Coordinator: Sanofi Pasteur 2Result Comment: Unit: Unknown Ems Coordinator: Sanofi Pasteur Medications norethindrone 0.35 mg oral tablet 0.35 mg = 1 tab, Oral, Daily, # 28 tab, 11 Refill(s), Pharmacy: [id number], 154.94, cm, 12/25/21 13:48:00 EDT, Height/Length Dosing, 75.75, kg, 12/25/21 13:48:00 EDT, Weight Dosing Start Date: 01/14/22 Status: Ordered Problem List Condition Confirmation Course Effective Dates Status Health St atus Informant exam Confirmed Active Rh negative Confirmed Active Procedures Procedure Date Related Diagnosis Body Site Status Structure of wisdom tooth 2006 Completed Vital Signs Most recent to oldest [Reference Range]: 1 Blood Pressure [90-140/60-90 mmHg] 108/7 8mmHg (01/14/22 4:09 PM) Weight 65.6 kg (01/14/22 4:09 PM) Weight Measured (lbs) 144.623 lb (01/14/22 4:09 PM) Social History Social History Type Response Tobacco Never tobacco user T obacco Use:. Sex summary Document * Event Display: Summary Document Authored Date: [id number] RENNY ALAS : 1990 Age: 31 Years RENNY ALAS : [birth year] Summary (Date of Report: 01/10/22) G 2 P 2 (2,0,0,2) Gestation: Davies LMP: 03/14/2021 (from pt. history) BEATRICE: 12/19/2021 BEATRICE/EGA Method: Last Menstrual Period EGA: Delivered Gestation info at delivery: Baby A : 40 weeks 6 days 12/11/21: U/S 05/29/2021: 12.6U/S 08/02/2021: 19.4 (Angela Henrandez) RENNY ALAS : [birth year] Antepartum Note Date: 12/13/21 11:04 (39 weeks) By: Kirk Mckeon Reviewed signs of labor and postdate management. RENNY ALAS : [birth year] Problems (Active Problems Only) (SNOMED CT: 573019028, Onset: 03/14/21) Comment: U/S 05/29/2021: 12.6 U/ 08/02/2021: 19.4 (Angela Hernandez on 12/11/21) Rh negative (SNOMED CT: 848207572, Onset: --) RENNY ALAS : [birth year] Risk Factors and Genetic Screening All Results Documented Since 03/14/2021 Risk Factors (Current ) Unique Risk Factors: Other: 1st child patent foramen ovale at [facility] x 15 days Ethnic Screening No ethnicities have been recorded. Genetic Disorders Screening No genetic disorders have been recorded. RENNY ALAS : [birth year] Gestational Age (EGA) and BEATRICE * Note: EGA calculated as of 01/10/2022 BEATRICE: 12/19/2021 EGA*: 40 weeks 6 days Type: Authoritative Method Date: 03/14/2021 Method: Last Menstrual Period (03/14/2021) Confirmation: Confirmed Description: Date Definite Comments: -- Entered by: Angela Hernandez on 12/11/2021 Other BEATRICE Calculations for this : No additional BEATRICE calculations have been recorded for this RENNY ALAS : [birth year] Measurements Pre- Weight: 61.69 kg 12/20/21 [...] Present per patient 12/13/2021 Present per patient EVETTE RENNY Franco : [birth year] Physical Exams Physical Exam [...] Color: Normal for ethnicity (12/25/21) Skin Description: [place], Dry (12/25/21) Skin Temperature: Warm (12/26/21) Skin Turgor: Elastic (12/26/21) Skin Moisture General: Dry (12/26/21) Skin Integrity: Intact, no abnormalities (12/25/21) Mucous Membrane Color: [place] (12/26/21) Mucous Membrane Description: Moist, Intact (12/26/21) RENNY ALAS DOB: [birth year] Blood Types and Anti-D Immune Globulin [...] (N) 12/25/21 (40 weeks) SARS-CoV-2 (COVID-19) PCR ([employer]) Negative 12/25/21 (40 weeks) Negative 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 (N) No 12/25/21 (40 weeks) RENNY ALAS: [birth year] Actions No Actions have been documented. RENNY ALAS DOB: [birth year] Situational Awareness No comments have been [...] N/A, Once Status: Completed Ordered: 12/27/21 Provider: Rom Generated docusate-senna 50 mg-8.6 mg (docusate-senna) 1 tab, N/A, Once Status: Completed Ordered: 12/26/21 Provider: Rom, Generated lidocaine 1% (lidocaine) 20 mL, N/A, Once Status: Completed Ordered: 12/25/21 Provider: Zitar, Generated mineral oil 100% (mineral oil) 30 mL, N/A, Once Status: Completed Ordered: 12/25/21 Provider: Zitar, Generated miSOPROStol 1,000 mcg = 5 tab, N/A, Once Status: Completed Ordered: 12/25/21 Provider: Rom, Generated nalbuphine 10 mg = 1 mL, N/A, Once Status: Completed Ordered: 12/25/21 Provider: Rom, Generated Nubain (Nalbuphine 10 mg/mL Inj Hilary [LTTL]) 5 mg = 0.5 mL, Subcutaneous, Once, PRN: pain Status: Completed Ordered: 12/25/21 Provider: Kirk Mckeon oxytocin 10 units = 1 mL, N/A, Once Status: Completed Ordered: 12/25/21 Provider: Rom Generated acetaminophen (Acetaminophen 325 mg Tab [LTTL]) 650 mg = 2 tab, Oral, every 4 hr, PRN: pain, mild Status: Discontinued Ordered: 12/25/21 Provider: Kirk Mckeon benzocaine-menthol 20%-0.5% topical spray (Benzocaine-Menthol Topical [place] [LTTL]) 1 shy, Topical, As Directed, PRN: [...] Tab [LTTL]) 1,000 mcg = 5 tab, NE, Once, PRN: bleeding Status: Discontinued Ordered: 12/25/21 [...] Status: Discontinued Ordered: 12/25/21 Provider: Kirk Mckeon witch sigrid 50% rectal pad (Witch Sigrid 50% Top Pad [LTTL]) 1 shy, Topical, As Directed, PRN: other (see comment) Status: Discontinued Ordered: 12/25/21 Provider: Kirk Mckeon RENNY ALAS : [birth year] Immunizations tetanus/diphth/pertuss (Tdap) adult/adol 10/11/21 (27 weeks) RENNY ALAS : [birth year] Menstrual History Last Recorded Menstrual Period: 03/14/2021 Last Menstrual Period Description: -- Menarche Onset: -- Menarche Frequency: -- Menarche Length: -- Date of Menses Prior to LMP: -- On Hormonal Contracept within 2 months of LMP: -- Date of Home Test: -- Comments: -- RENNY ALAS : [birth year] History (2,0,0,2) # 1 Baby 1 Outcome Date: 07/11/2019 Outcome or Result: Vaginal Gest Age: 40 weeks 5 days Outcome: Live Sex: Female Wt: 3062 g Child's Name: Sunil Name of Father/Guardian of : [facility]: [facility] Comment: Second degree perineal laceration # [...] History Social History 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 Living [...] Plan: -- Written Plan Location: -- Support Person/Curtain Stitcher Relationship to Pt: Father of baby Oral Intake OB: -- Labor Preferences: -- Non-Medicinal Pain Relief: -- Anesthesia/Pain Medication During Labor: -- Delivery Plan: -- Infant Feeding: Exclusive breast milk Circumcision: -- Baby For Adoption: -- Patient Requests: -- Father of the Baby's Name: Jolie Armstrong Compensation Analyst Selected: -- Surrogate : -- Support Person's Name: -- RENNY ALAS : [birth year] Education Educational Materials/Leaflets Provided Title/Topic Date Provided [facility] - [facility] ([place]) - Vaginal or Delivery - Post Discharge Instructions 12/27/21 Patient Education Pain Management: Verbalizes understanding (12/25/21 - Lou Busby) Depression: Verbalizes understanding (12/25/21 - Lou Busby) RENNY ALAS : [birth year] Registration and Information Race: White Ethnicity: Not , , or Armenian Origin Marital Status: Language(s): Belarusian Baptism Preference(s): None/No Preference Occupation/Education: Address, Phone, and Health Plans Home Address: [facility] [place] [address] (Home), , -- Health Plans: 1 - MEDICAID [place] Member/Group: [id number] Deductible: $ -- Type: Medicaid Address: [address] [id number] 2 - [place]ICAID [place] Member/Group: [id number] Deductible: $ -- Type: Medicaid Address: [address] [id number] 3 - SELF PAY Member/Group: -- Deductible: $ -- Type: Self Pay Address: [address] [address], [place] [address] General Information OB Provider(s) Information: Kehinde Humphries MD, FACOG See below for detailed information for all visits and information. Delivery Center/Hospital Information: -- [facility] Provider Information: -- Referring Provider Information: [facility] Primary Provider Information: -- /Partner Information: JOLIE ARMSTRONG Support Person Information: -- (Father of baby) Planned/Unplanned : -- Date Consent Signed for Tubal Ligation: -- Date Record Sent to Hospital: -- RENNY ALAS : [birth year] Visits and Encounters (Known encounters since 03/14/2021. May include lab encounters.) Date Location Provider Type Medical Service 01/14/2022 [facility] Kirk Mckeon [facility] 12/26/2021 [facility] -- [facility] 12/25/2021 [facility] Inpatient Inpatient 12/25/2021 A Kirk Mckeon Inpatient Inpatient 12/20/2021 T2 Kehinde Humphries MD, [facility] Clinic 12/13/2021 1 Kirk Mckeon Clinic Clinic 11/29/2021 [facility] Kirk Mckeon History Laboratory 09/24/2021 [facility] Ophelia Sainz APRN History Laboratory 08/02/2021 [facility]Diagnost[facility]G [facility] History Radiology 06/05/2021 [facility] [id number] -KEHINDE HUMPHRIES History Laboratory RENNY ALAS : [birth year] Visit / Encounter Location Information The following information represents known location and contact information for locations visitedduring [facility] Ambulatory [facility]ics Business Address: [address] [place] [address] Phone:[phone] [facility] Address: No addresses found on file for location Phone: No phone numbers found on file for location RENNY ALAS DOB: [birth year] Visit Diagnosis (Note: All diagnoses documented [...] cord Data Gender: Female ID Band Number: [id number] Outcome: Live Security Tag Number: [id number] Weight: 3.62 kg Score 1 Minute: 8 Score 5 Minute: 9 Compensation Analyst: Jesenia Ha Note: Items documented with '--' had no clinical data which qualified at time of report creation END OF REPORT Physician Outpatient Note * Shanna Zavala: PERFORM Event Display: Office Clinic Note Physician Authored Date: [id number] * Kirk Mckeon: PERFORM Event Display: Office Clinic Note Physician Authored Date: [id number] RENNY ALAS :1990 Age:31 years Sex:Female Visit Date:01/14/2022 Chief Complaint Post- 3 weeks Additional Information and bottle feeding Patient would like OCP (minipill) History of Present Illness 31yo 002, The patient is here today for a appointment. She had a Spontaneous Vaginal Delivery [...] ??She plans on using the Minipill for control. Physical Exam Vitals & Measurements BP:??108/78?? WT:??65.6??kg?? General: Alert and oriented, no acute distress Lungs: Clear to auscultation bilaterally, non-labored respiration Neck: Supple, no thyromegaly Heart: Regular rate and rhythm, no murmurs, rubs or gallops Abdomen: Nontender,??fundus is firm and below the umbilicus Musculoskeletal: Normal range of motion and strength, no tenderness or edema Assessment/Plan 1.?? exam??Z39.2 The patient is doing very well overall. She is physically fine with a normal cardiac exam and tapering/finished lochial flow. She and the baby are bonding well and, as expected, are having mostly good days. ??Recommended that she come back to the office??for her 6 weeks?? appointment. Problem List/Past Medical History Ongoing exam Rh negative Historical Encounter for supervision of normal in third trimester Procedure/Surgical History ???Structure of wisdom tooth (2006) Medications norethindrone 0.35 mg oral tablet, 0.35 mg= 1 tab, Oral, Daily, 11 refills Allergies Dust No Known Medication Allergies Social History Electronic Cigarette/Vaping Electronic Cigarette Use: Never. 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 Living situation: Home/Independent. Tobacco Never tobacco user Tobacco Use:. Family History Alive and well: Sister and Daughter. Cancer: Father. Hypertension: Mother. Family Member(s): ?? FATHER, at age: 67 Years. Cause of : ALS Immunizations Vaccine Date Status tetanus/diphth/pertuss (Tdap) adult/adol 10/11/2021 Recorded Comments : Unit: Unknown Ems Coordinator: Sanofi Pasteur tetanus/diphth/pertuss (Tdap) adult/adol 05/05/2019 Recorded Comments : Unit: Unknown Ems Coordinator: Sanofi Pasteur Electronically Signed on 01/14/22 04:47 PM Mike, Kirk P
--- OUTSIDE RECORDS SUMMARY | 2022-10-28 19:01 | XMS_ITS | Continuity of Care Document ---
Author Name Unknown Organization [facility] Address [address] [place] [address] Encounter [facility] NBR [id number] Date(s): 12/13/21 - 12/13/21 [facility] [address] [place] [address] [place] Encounter Diagnosis Rh negative(Discharge Diagnosis) - 12/13/21 Encounter for supervision of normal in third trimester(Discharge Diagnosis) - 12/13/21 Discharge Disposition: Home or Self Care Attending Physician: Kirk Mckeon Allergies, Adverse Reactions, Alerts No Known Medication Allergies Substance Reaction Severity Status Dust Unknown Active Assessment and Plan Diagnostic Tests Pending * .Urinalysis POCT 12/13/21 Functional Status 12/13/21 Other exposure to Infectious Disease Non e Medications FeroSul 325 mg (65 mg elemental [...] Active 1U/S 05/29/2021: 12.6 U/S 08/02/2021: 19.4 Results Most recent to oldest [Reference Range]: 1 Protein Urine Dipstick Negative (12/13/21 11:05 AM) Glucose Urine Dipstick Negative (12/13/21 11:05 AM) Vital Signs Most recent to oldest [Reference Range]: 1 2 Systolic Blood Pressure [90-140 mmHg] 12 2 mmHg (12/13/21 10:39 AM) 122 mmHg (12/13/21 10:39 AM) Diastolic Blood Pressure [60-90 mmHg] 74 mmHg (12/13/21 10:39 AM) 74 mmHg (12/13/21 10:39 AM) Weight 76.0 kg (12/13/21 10:39 AM) Height 154.94 cm (12/13/21 10:39 AM) Social History Social History Type Response Tobacco Never tobacco user T obacco Use:. Sex
--- OUTSIDE RECORDS SUMMARY | 2022-10-28 19:02 | XMS_ITS | Continuity of Care Document ---
Author Name Unknown Organization [facility] Address [address] [place] [address] Care Team Providers Care Program Technician Name Role Phone Unavailable, Physician Primary Care Physician Un available Encounter [facility] NBR [id number] Date(s): 05/13/22 - 05/13/22 [facility] [address] [place] [address] [place] Encounter Diagnosis Encounter for gynecological examination without abnormal finding(Discharge Diagnosis) - 05/13/22 Cervical high risk human papillomavirus (HPV) DNA test positive(Discharge Diagnosis) - 05/13/22 Encounter for screening for malignant neoplasm of cervix(Discharge Diagnosis) - 05/13/22 Discharge Disposition: Home or Self Care Attending Physician: Kirk Mckeon Allergies, Adverse Reactions, Alerts No Known Medication Allergies Substance Reaction Severity Status Dust Unknown Active Functional Status 05/13/22 Other exposure to Infectious Disease Non e Immunizations Given and Recorded Vaccine Date Status Refusal Reason tetanus/diphth/pertuss (Tdap) adult/adol 1 10/11/21 Recorded tetanus/diphth/pertuss (Tdap) adult/adol 2 05/05/19 Recorded 1Result Comment: Unit: Unknown Mortarman: Sanofi Pasteur 2Result Comment: Unit: Unknown Mortarman: Sanofi Pasteur Medications multivitamin adult, oral tablet 1 tab, Oral, Daily, # 30 tab, 0 Refill(s) Start Date: 02/11/22 Status: Ordered norethindrone 0.35 mg oral tablet 0.35 mg = 1 tab, Oral, Daily, # 28 tab, 11 Refill(s), Pharmacy: [facility] #[id number], 154.94, cm, 12/25/21 13:48:00 EDT, Height/Length [...] [Reference Range]: 1 Blood Pressure [90-140/60-90 mmHg] 112/7 8mmHg (05/13/22 10:56 AM) Weight 60.1 kg (05/13/22 10:56 AM) Weight Measured (lbs) 132.498 lb (05/13/22 10:56 AM) Social History Social History Type Response Smoking Status Smoking tobacco use: Never tobacco user;Never entered on: 02/11/22 Sex summary Document * Event Display: Summary Document Authored Date: [id number] RENNY ALAS : 1990 Age: 31 Years [...] 88 Problems (Active Problems Only) (SNOMED CT: 225998758, Onset: 03/14/21) Comment: U/S 05/29/2021: 12.6 U/S 08/02/2021: 19.4 (Angela Hernandez on 12/11/21) Rh negative (SNOMED CT: 170700851, Onset: --) RENNY ALAS : [birth year] Risk Factors and Genetic Screening All Results Documented Since 03/14/2021 Risk Factors (Current ) Unique Risk Factors: Other: 1st child patent foramen ovale [place] [facility] 15 [place] Ethnic Screening No ethnicities [...] Present per patient 12/13/2021 Present per patient RENNY ALAS : [birth year] Physical Exams Physical Exam Mental [...] Color: Normal for ethnicity (12/25/21) Skin Description: [place], Dry (12/25/21) Skin Temperature: Warm (12/26/21) Skin Turgor: Elastic (12/26/21) Skin Moisture General: Dry (12/26/21) Skin Integrity: Intact, no abnormalities (12/25/21) Mucous Membrane Color: [place] (12/26/21) Mucous Membrane Description: Moist, Intact (12/26/21) RENNY ALAS DOB: [birth year] Blood Types and Anti-D Immune Globulin Blood Type and Screen Mother ABO/Rh: -- Mother Antibody Screen: -- Father of Baby ABO/Rh: -- Father of Baby Antibody Screen: -- Anti-D Immune Globulin Rho(D) Initial Status: -- Rho(D) 28 Week Status: -- Rho(D) Dates Given: -- RENNY ALAS : [birth year] Tests and Lab Results Results ending [...] (N) 12/25/21 (40 weeks) SARS-CoV-2 (COVID-19) PCR ([facility]) Negative 12/25/21 (40 weeks) Negative 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 (N) No 12/25/21 (40 weeks) RENNY ALAS : [birth year] Actions No Actions have been documented. RENNY ALAS : [birth year] Situational Awareness No comments have been [...] N/A, Once Status: Completed Ordered: 12/26/21 Provider: Rom Generated lidocaine 1% (lidocaine) 20 mL, N/A, Once Status: Completed Ordered: 12/25/21 Provider: Zitar Generated mineral oil 100% (mineral oil) 30 mL, N/A, Once Status: Completed Ordered: 12/25/21 Provider: AdanUser, Generated miSOPROStol 1,000 mcg = 5 tab, N/A, Once Status: Completed Ordered: 12/25/21 Provider: Zitar, Generated nalbuphine 10 mg = 1 mL, [...] Mckeon benzocaine-menthol 20%-0.5% topical spray (Benzocaine-Menthol Topical [place] [LTTL]) 1 shy, Topical, As Directed, PRN: [...] Tab [LTTL]) 1,000 mcg = 5 tab, CO, Once, PRN: bleeding Status: Discontinued Ordered: 12/25/21 [...] Ordered: 12/25/21 Provider: Kirk Mckeon RENNY ALAS DOB: [birth year] Immunizations tetanus/diphth/pertuss (Tdap) adult/adol 10/11/21 (27 [...] Name: Sunil Name of Father/Guardian of : [facility]: [facility] Comment: Second degree perineal laceration # 2 [...] tooth Age: 15 Years Date: 2006 RENNY ALAS: [birth year] Social & Psychosocial History Social History 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 Home/Environment Lives with Children, Significant other. Living situation: Home/Independent. Tobacco Never tobacco user Tobacco Use:. Electronic Cigarette/Vaping Electronic Cigarette Use: Never. Psychosocial History Family/Social Father of Baby Involved: Yes RENNY ALAS: [birth year] Infection History Infection history negative or not recorded RENNY ALAS : [birth year] Anesthesia and Transfusions Prior Anesthesia or Transfusion Received: Prior general anesthesia, No prior transfusion Prior Anesthesia Reaction(s): None Prior Transfusion Reaction(s): -- Blood Transfusion Acceptable to Patient: -- RENNY ALAS : [birth year] Plan and Patient Requests Desired Delivery Location: -- Education: -- Written Plan: -- Written Plan Location: -- Support Person/Legislative Advocate Relationship to Pt: Father of baby Oral Intake OB: -- Labor Preferences: -- Non-Medicinal Pain Relief: -- Anesthesia/Pain Medication During Labor: -- Delivery Plan: -- Infant Feeding: Exclusive breast milk Circumcision: -- Baby For Adoption: -- Patient Requests: -- Father of the Baby's Name: Jolie Armstrong Vat Cleaner Selected: -- Surrogate : -- Support Person's Name: -- RENNY ALAS : [birth year] Education Educational Materials/Leaflets Provided Title/Topic Date Provided [facility] SHANNON) - Vaginal or Delivery - Post Discharge Instructions 12/27/21 Patient Education Pain Management: Verbalizes understanding (12/25/21 - Lou Busby) Depression: Verbalizes understanding (12/25/21 - Lou Busby) RENNY ALAS : [birth year] Registration and Information Race: White Ethnicity: Not , , or Micronesian Origin Marital Status: Language(s): Luxembourgish Caodaism Preference(s): None/No Preference Occupation/Education: Address, Phone, and Health Plans Home Address: [address], [place] [address] (Home), , -- Health Plans: 1 - [place] Member/Group: [id number] Deductible: $ -- Type: Medicaid Address: [address] [place] [id number] 2 - [place]ID [place] Member/Group: [id number] Deductible: $ -- Type: Medicaid Address: [address], [place], [place] [id number] 3 - SELF PAY Member/Group: -- Deductible: $ -- Type: Self Pay Address: [address] [address], [place] [address] General Information OB Provider(s) Information: Kehinde Barakat MD, [facility] See below for detailed information for all visits and information. Delivery Center/Hospital Information: -- [facility] Provider Information: -- Referring Provider Information: [facility] Primary Provider Information: -- /Partner Information: JOLIE ARMSTRONG Support Person Information: -- (Father of baby) Planned/Unplanned : -- Date Consent Signed for Tubal Ligation: -- Date Record Sent to Hospital: -- RENNY ALAS : [birth year] Visits and Encounters (Known encounters since 03/14/2021. May include lab encounters.) Date Location Provider Type Medical Service 01/14/2022 [facility] Kirk Mckeon [facility] 12/26/2021 [facility] 12/25/2021 [facility] Inpatient Inpatient 12/25/2021 A Kirk Mckeon Inpatient Inpatient 12/20/2021 T2 Kehinde Barakat MD, [facility] Clinic 12/13/2021 1 Kirk Mckeon Clinic Clinic 11/29/2021 [facility] Kirk Mckeon History Laboratory 09/24/2021 [facility] Ophelia Sainz APRN History Laboratory 08/02/2021 [facility] History Radiology 06/05/2021 [facility] [id number] -KRISTELKEHINDE History Laboratory RENNY ALAS : [birth year] Visit / Encounter Location Information The following information represents known location and contact information for locations visitedduring [facility] Business Address: [address] [place] [address] Phone:[phone] [facility] Address: No addresses found on file for [...] cord Data Gender: Female ID Band Number: [id number] Outcome: Live Security Tag Number: [id number] Weight: 3.62 kg Score 1 Minute: 8 Score 5 Minute: 9 Vat Cleaner: Jesenia Ha Note: Items documented with '--' had no clinical data which qualified at time of report creation END OF REPORT Physician Outpatient Note * Kirk Mckeon: PERFORM Event Display: Office Clinic Note Physician Authored Date: [id number] RENNY ALAS :1990 Age:31 years Sex:Female Visit Date:05/13/2022 Primary Care Physician: Unavailable, Physician Chief Complaint PROPAG[facility] Well Woman Exam, PAP Additional Information Last PAP 06/05/2021: NILM, + HR HPV non 16/18, - CT, - NG, patient is breast feedking, OCP for prevention History of Present Illness 31yo Female, LMP- none The patient is here today for a PROPAGATOR Well Woman Exam.?? She had a??vaginal delivery on 12/25/2021 and is currently breast-feeding. ??She takes Norethindrone for control. ??Her last Pap smear on 06/05/2021 was Cytology Negative. However, she??is Positive for High Risk HPV DNA. Review of Systems Constitutional: No fevers, chills, sweats, no weight loss, no weight gain Eye: No new visual problems Respiratory: No shortness of breath, cough Cardiovascular: No chest pain, palpitations, syncope Gastrointestinal: No nausea, vomiting, diarrhea Genitourinary: No blood in urine, no urinary urgency, frequency, leakage, no painful urination, no difficulty urinating Telegraphic Typewriter Installer: No unexpected vaginal bleeding, odor, discharge, no vulvar itching, pain, dryness, no pain with menses or intercourse, no pelvic pain Heme/Lymph: Negative for bruising tendency, swollen lymph glands Endocrine: Negative for cold intolerance, new unexpected hair growth Skin: No bruises, abrasions Psychiatric: No anxiety, depression Physical Exam Vitals & Measurements BP:??112/78?? WT:??60.1??kg?? General: Alert and oriented, well nourished, no acute distress Eye: Pupils equal, EOMI HEENT: Normocephalic, grossly normal hearing, moist oral mucosa, no scleral icterus Neck: Supple, no thyroid enlargement, no lymphadenopathy Lungs: Clear to auscultation, non-labored respiration Heart: Normal rate, regular rhythm, no murmurs Abdomen: Soft, non-tender, non-distended, normal bowel sounds, no masses Musculoskeletal: Grossly normal range of motion and strength, no tenderness or swelling Skin: Skin is warm, dry, no rashes Neurologic: Awake, alert, and oriented X4 Psychiatric: Cooperative, appropriate mood and affect ?? Vulva: Normal external female genitalia Bladder: Urethra normal, no bladder prolapse Vagina:??No abnormal discharge or blood, adequate pelvic support Cervix: Normal appearance, no lesions or lacerations Uterus: Normal size, shape, non tender, mobile, no prolapse Adnexa: No masses or tenderness Perineum/Anus: No skin changes or hemorrhoids Assessment/Plan 1.??Encounter for gynecological examination without abnormal finding??Z01.419 ?? 2.??Cervical high risk human papillomavirus (HPV) DNA test positive??R87.810 Ordered: Outside Lab Request, 05/13/22 11:31:00 EST, Stop date 05/13/22 11:31:00 EST, [facility]: PAP w/HPV, Cervical high risk human papillomavirus (HPV) DNA test positive Encounter for screening for malignant neoplasm of cervix ?? 3.??Encounter for screening for malignant neoplasm of cervix??Z12.4 Ordered: Outside Lab Request, 05/13/22 11:31:00 EST, Stop date 05/13/22 11:31:00 EST, [facility]: PAP w/HPV, Cervical high risk human papillomavirus (HPV) DNA test positive Encounter for screening for malignant neoplasm of cervix ?? Today, at the time of your Well Woman visit, we discussed many different topics in hopes of helpingyou maintain your half-way health. We discussed screening tests that are appropriate for you. Thesetests are ordered depending on your age, medical and gynecologic histories, and risk factors. In order for you to maintain your half-way health, you'll also need to get routine exercise. Current datareflect that you can do 35 minutes of mild exercise 5 days per week or 25 minutes of vigorous exercise 5 days per week and maintain your half-way health. I would also recommend that you make sure youare getting enough vitamin D. Most women in the [facility] are low on vitamin D. I would recommend that you supplement daily with vitamin D, and that you take 1000 - 1500 Int Units daily.? We discussed pap smear screening recommendations. Pap smears are not recommended yearly for manywomen and should be done based on screening recommendations. Many low risk women actually only needa pap every 3 years or every 5 years. This testing is done to look for evidence of precancerous changes involving your cervix or vagina that come as a result of a viral infection from the Human Papilloma Virus. It is still recommended for most women to have breast and pelvic exams even if they do not need to have a pap smear. Problem List/Past Medical History Ongoing Cervical high risk human papillomavirus (HPV) DNA test positive exam Rh negative Historical Encounter for supervision of normal in third trimester Procedure/Surgical History ???Structure of wisdom tooth (2007) Medications multivitamin adult, oral tablet, 1 tab, Oral, Daily norethindrone 0.35 mg oral tablet, 0.35 mg= 1 tab, Oral, Daily, 11 refills Allergies Dust No Known Medication Allergies Social History Alcohol Current, 1-2 times per month Electronic Cigarette/Vaping Electronic Cigarette Use: Never. 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 Home/Environment Lives with Children, Significant other. Living situation: Home/Independent. Sexual Sexually active: Yes. Substance Use Never Tobacco Never tobacco user Tobacco Use:. Never Smokeless Tobacco use:. Family History Alive and well: Sister, Daughter and Daughter. Cancer: Father. Hypertension: Mother. Family Member(s): ?? FATHER, at age: 67 Years. Cause of : ALS Immunizations Vaccine Date Status tetanus/diphth/pertuss (Tdap) adult/adol 10/11/2021 Recorded Comments : Unit: Unknown Mortarman: Sanofi Pasteur tetanus/diphth/pertuss (Tdap) adult/adol 05/05/2019 Recorded Comments : Unit: Unknown Mortarman: Sanofi Pasteur Electronically Signed on 05/13/22 11:35 AM Kirk Mckeon Patient Care team information Care Team Personnel Name: Kehinde Barakat MD, FACOG Position: Physician - Women's Health Member Role: AUDIT CLERK Physician Address: Address: [address] [place] [phone] [place] Name: Unavailable, Physician Position: No Access Member Role: Primary Care Physician Care Team Related Persons Name: ZANE ARMSTRONG Address: [address] [address] [facility] Name: JOLIE ARMSTRONG Address: Home [address] [id number] [facility]
--- NOTE | 2022-10-28 19:52 | NUR.NOTE ---
Requisition faxed to [facility] for pelvic/OB ultrasound for 10/29/22. Patient to f/u in ED. 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
== END 2022-10-28 19:11 | disposition home or self-care (01) ==
PROVIDERS: Emergency Provider Emergency Medicine; PCP Family Medicine
DX: O26.891 Other specified pregnancy related conditions, first trimester (principal); R10.30 Lower abdominal pain, unspecified; Z3A.01 Less than 8 weeks gestation of pregnancy
CPT/HCPCS: 80053; 81025; 83690; 96360; 99284; 81003; 81015; 84702; 85025; 99283